=== PATIENT | male | born 1945 | race Caucasian/White ===

== ENCOUNTER 2016-12-11 14:23 | Inpatient (IN) | payer MEDICARE, OTHER ==
[~2016-12-11] VITALS: Ht 177.8 cm; Wt 92.4 kg
[2016-12-14] MEDS ORDERED: TRAM50TA PO (11:13)
[2016-12-14] MEDS ORDERED: BOSW5TAB PO (11:13)
[2016-12-14] MEDS ORDERED: TAMS0.4C4 PO (11:13)
[2016-12-14] MEDS ORDERED: DICL75TA PO (11:13)
[2016-12-14] MEDS ORDERED: POTA550T2 PO (11:13)
[2016-12-14] MEDS ORDERED: VENTAER INH (11:14)
--- NOTE | 2016-12-17 17:26 | MH ---
cc: LANCE DOBBINS MD, NORMAN B. M.D. DATE OF ADMISSION: 12/23/2016 ADMITTING DIAGNOSIS: 1. Severe osteoarthritis of the right hip. 2. Pain right hip. 3. gait disturbance. HISTORY OF PRESENT ILLNESS: The patient is a 71-year-old white male who has experienced at least a two year history of pain of his hips bilaterally, unrelated to injury or unusual activity. He had undergone initial evaluation with his primary care physician, Dr. Lance Dobbins, who diagnosed the patient has having an arthritic condition for which he was prescribed Voltaren. 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 He returned to his primary care physician and at that time x-ray studies were completed and the patient was prescribed Tramadol for pain management. He was subsequently seen by the undersigned physician in November of this year and at that time the patient reported ongoing difficulty as related to all ambulatory activities as well as his symptoms interfering with his ability to sleep comfortably through the night. His x-ray studies revealed significant degenerative changes which radiographically were somewhat more pronounced on the left side but clinically the patient was more symptomatic on the right side. He also was noted to have degenerative changes throughout his lumbar region. Findings and treatment options were reviewed with the patient. At that time, the pros and cons of continuing with conservative management versus operative intervention that would involve a total hip arthroplasty were outlined in detail. Emphasis was made regarding the fact that the decision to proceed with surgery would be left entirely to the patient's discretion. The patient indicated that he felt he had exhausted all modes of conservative management and did not feel that continuing in this direction would prove to be of any long-term benefit. He expressed his desire to proceed with operative intervention as previously discussed, and in compliance with his wishes he is currently being admitted in order that right total hip arthroplasty be completed. PAST MEDICAL HISTORY: His past medical history, hospitalizations and surgeries have included: 1. Sinus surgery. 2. Correction of a deviated nasal septum. 3. Colonoscopy. 4. Laser surgery for hemorrhoids. 5. Cystoscopy. 6. Medical management for pharyngitis. The patient's medical illnesses are basically related to his arthritic condition. MEDICATIONS: His current medications: 1. Diclofenac 75 milligrams twice daily. 2. Tramadol 50 milligrams one to two times daily. 3. Tamsulosin 0.4 milligrams daily. 4. Potassium gluconate 550 milligrams daily. 5. Osteo Biflex twice a day. ALLERGIES: THE PATIENT DENIES ANY KNOWN ALLERGIES. HE IS ALLERGIC TO PET DANDER WHICH HAS CAUSED SINUS CONGESTION. REVIEW OF SYSTEMS: He does wear glasses. Denies headache, seizure or syncope. No current sinus congestion. No epistaxis. Auditory acuity is diminished but not requiring hearing aids. No tinnitus. No bleeding gums or dysphagia. Denies cough, shortness of breath, upper respiratory infection, pneumonia or tuberculosis. No angina or heart disease. His appetite is good. Bowel movements are regular. No hepatitis, gallbladder disease or ulcers. There is a positive history of hemorrhoids. No urinary tract infection. No kidney stones. No prostate disease. No fractures. No psychiatric illness. His remaining review of systems is unremarkable and noncontributory. FAMILY HISTORY: The patient has been 41 years. His is 70 years of age and described as being in good health. Three sons are indicated to be in good health. Family history is otherwise positive for heart disease, emphysema and pancreatic cancer. 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 He completed a high school education. He denies active use of tobacco. He has ethanol consumption socially in the form of a couple beers or glasses of wine daily. PHYSICAL EXAMINATION: HEIGHT: 5 feet 10 inches. WEIGHT: 186 pounds. GENERAL: An alert, oriented and responsive 71-year-old white male who sits quietly upon examination table with no obvious distress. HEAD, EYES, EARS, NOSE, THROAT: Pupils are equally round and reactive to light. Extraocular movements full. Sclerae are clear. External nares clear. External auditory canals clear. Dental intact. Mucous membranes pink and moist. Pharynx clear. NECK: The neck is supple. Active range of motion with no appreciable pain. Carotid pulse bilaterally. Trachea midline. Thyroid without enlargement. LUNGS: Clear to auscultation and percussion. BACK: No CVA tenderness. No discomfort throughout the dorsal or lumbar spine. HEART: Regular rhythm. No murmur or gallop. ABDOMEN: Abdomen is soft and nontender. Bowel sounds present. RECTAL: Per primary care physician. EXTREMITIES: Right hip - there is no localizing tenderness along the lateral aspect of the right hip. There is restricted mobility of the hip joint in all ranges assessed being most pronounced with internal rotation and pain at the extremes of mobility. No sensation of crepitation or instability. Straight-leg raising is negative at 80 degrees. Chente sign is positive. Distal sensory is grossly intact. Pronounced antalgic gait. NEUROLOGIC: Cranial nerves II-XII grossly intact. IMPRESSION: 1. Severe osteoarthritis of the right hip. 2. Pain right hip. 3. Gait disturbance. PLAN: Right total hip arthroplasty. The nature of the planned surgical procedure, the potential complications and risks associated, the expectations of surgery and the consent form were thoroughly reviewed with the patient prior to admission to the hospital. Kunal has indicated his full understanding regarding all of the above, and has given consent to proceed with treatment as outlined. Medical evaluation and clearance for surgery will be completed by his primary care physician Dr. Lance Dobbins. MD ANDRES Jimenes/JCC /4:56 PM /5:14 PM
[2016-12-23] MEDS ORDERED: ceFAZolin 2 GM PREMIX 50 ML IV SCH (05:30)
[2016-12-23] MEDS ORDERED: TRANEXAMIC ACID 1 GM POST-OP IV SCH ×2 (05:30)
[2016-12-23] MEDS ORDERED: POVIDONE IODINE 7.5% SCRUB 118 ML BOTTLE TOPICAL SCH (05:30)
[2016-12-23] MEDS ORDERED: TRANEXAMIC ACID 1 GM PRIOR TO PROCEDURE IV SCH ×2 (05:30)
[2016-12-23] MEDS ORDERED: LACTATED RINGER'S 1000 ML IV PRN (05:45)
[2016-12-23] MEDS ORDERED: POVIDONE IODINE 5% (ANTISEPSIS KIT) 4 APPLICATIONS EACH NARE PRN (05:45)
[2016-12-23] MEDS ORDERED: SODIUM CHLORID 0.9% 500 ML IV PRN (05:45)
[2016-12-23] MEDS ORDERED: CHLORHEXIDINE GLUCONATE 2 % 1 PACK (2 CLOTHS) TOPICAL PRN (05:45)
[2016-12-23] MEDS ORDERED: METOPROLOL TARTRATE 25 MG TAB PO PRN (05:45)
[2016-12-23] MEDS ORDERED: INSULIN HUMAN REGULAR 1,000 UNITS/10 ML VIAL SQ PRN (05:45)
[2016-12-23 05:53] VITALS: BP 144/75; PULSE 69; RESP 18; TEMP 99.3; O2SAT 96
[2016-12-23] MEDS ORDERED: ceFAZolin INJ 1,000 MG VIAL ONE ×2 (06:24→06:33)
[2016-12-23] MEDS ORDERED: fentaNYL CITRATE 250 MCG/5 ML AMP ONE (08:19)
[2016-12-23] MEDS ORDERED: ACETAMINOPHEN 1000 MG/100 ML VIAL IV ONE (08:19)
[2016-12-23] MEDS ORDERED: MIDAZOLAM HCL 2 MG/2 ML VIAL ONE (08:19)
[2016-12-23] MEDS ORDERED: Post-op Orders (for Pharmacy) MISC XX ONE (09:10)
[2016-12-23] MEDS ORDERED: diphenhydrAMINE HCL 25 MG CAP PO PRN (09:15)
[2016-12-23] MEDS ORDERED: TRANEXAMIC ACID INJ 1,000 MG in SODIUM CHLORIDE 0.9% INJ 100 ML IV SCH (09:15)
[2016-12-23] MEDS ORDERED: ZOLPIDEM TARTRATE 5 MG TAB PO PRN (09:15)
[2016-12-23] MEDS ORDERED: NALOXONE HCL 0.4 MG/ML AMP IV PRN (09:15)
[2016-12-23] MEDS ORDERED: MISCELLANEOUS PHARMACY INFORMATION XX ONE (09:15)
[2016-12-23] MEDS ORDERED: SODIUM CHLORIDE 0.9% FLUSH 10 ML FLUSH IV FLUSH PRN (09:15)
[2016-12-23] MEDS ORDERED: DOCUSATE SODIUM 100 MG CAP PO PRN (09:15)
[2016-12-23] MEDS ORDERED: ACETAMINOPHEN 325 MG TAB PO PRN (09:15)
[2016-12-23] MEDS ORDERED: ACETAMINOPHEN/HYDROcodone 325 MG/5 MG TAB PO PRN ×2 (09:15)
[2016-12-23] MEDS ORDERED: MORPHINE SULFATE 30 MG/30 ML PCA IV SCH (09:15)
[2016-12-23] MEDS ORDERED: *MEPERIDINE 25 MG INJ VIAL PERIprocedural Use ONLY ONE (09:23)
[2016-12-23] MEDS ORDERED: *morphine SULFATE 8 MG/ML PERIprocedure ONLY ONE ×2 (09:35→09:55)
[2016-12-23] MEDS ORDERED: DO NOT ADM ANY ANTICOAGULANT DRUGS PRN (10:30)
--- NOTE | 2016-12-23 10:42 | RADRPT ---
EXAM DATE/TIME: 12/23/2016 09:38 [facility] COMPARISON: No previous studies available for comparison. INDICATIONS : Post op right hip surgery. MEDICAL HISTORY : None. SURGICAL HISTORY : None. ENCOUNTER: Initial ACUITY: 1 day PAIN SCORE: 0/10 LOCATION: Right Hip. FINDINGS: The patient is status post a total hip arthroplasty with a bipolar prosthesis. Prosthesis is well-sea yousuf. Alignment is anatomic. A fracture is not appreciated. CONCLUSION: Anatomic alignment. Harley Rutherford MD FACR Board Certified Radiologist. This report was verified electronically.
[2016-12-23] MEDS: DEXT 5%-NACL 0.45% 1000 ML INJ 1,000 ML IV SCH ×2 (10:52→17:03)
--- NOTE | 2016-12-23 11:04 | MP ---
cc: KEHINDE CONTE DATE OF OPERATION 23 Dec 2016 PREOPERATIVE DIAGNOSIS Severe osteoarthritis of the right hip, pain right hip, and gait disturbance. POSTOPERATIVE DIAGNOSIS Severe osteoarthritis of the right hip, pain right hip, and gait disturbance. PROCEDURE Right total hip arthroplasty. SURGEON MD Ritu ANESTHESIA General endotracheal. INDICATIONS A 71-year-old white male with a two-year history of bilateral hip pain unrelated to injury or unusual activity. He had undergone initial evaluation with his primary care physician, Dr. Immanuel Sofia, who had diagnosed the patient as having an arthritic condition for which he was prescribed Voltaren. 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 He returned to his primary care physician at that time, x-ray studies were completed and the patient was prescribed tramadol for pain management. He was later seen by the undersigned physician in November of this year and at that time he reported ongoing difficulty as related to all ambulatory activities as well as symptoms interfering with his ability to sleep comfortably through the night. His x-ray studies revealed significant degenerative changes somewhat more pronounced about his left hip but clinically the patient being more symptomatic on the right side. He was also noted to have degenerative changes throughout his lumbar spine. Findings and treatment options were reviewed with the patient at that time. The pros and cons of continuing with conservative management versus operative intervention that would involve total hip arthroplasty were outlined in detail. Emphasis was made regarding the fact that the decision to proceed with surgery would be left entirely to the patient's discretion. The patient indicated that he felt he had exhausted all modes of conservative management, did not feel that continuing in this direction would prove to be of any long-term benefit. He expressed his desire to proceed with surgery as discussed and in compliance with his wishes he was scheduled for admission at this time in order that total hip arthroplasty be completed. FORMAT Following induction of satisfactory general anesthesia by endotracheal intubation as completed per the Department of Anesthesia, the patient was positioned upon the operating table in a left lateral decubitus fashion. The right hip and lower extremity proper were isolated with a U drape, thereafter being prepped with Betadine solution and draped into a sterile field in the routine manner. Prior to initiation of the actual procedure, the standard time-out protocol was completed. All parameters were appropriately addressed and confirmed by operating room personnel. A standard posterolateral approach to the hip was initiated through a sharp skin incision and developed through underlying subcutaneous tissue with hemostasis maintained by electrocautery. By deepening dissection the fascia overlying the gluteus musculature was exposed and thereafter sharply incised to the limits of the incision. The underlying gluteus fibers were divided with the Bovie on cutting current. Progressive dissection facilitated exposure of the short external rotator structures. The pyriformis tendon was utilized in anatomical landmark and division of these structures was completed in a superior to inferior orientation reflected medially exposing the posterior capsule. The sciatic nerve was protected. An L-shaped capsulotomy was accomplished through which a posterior dislocation of the femoral head was completed. Examination revealed severe degenerative changes involving the entire articular surface. In addition there were multiple cartilaginous fragments throughout the acetabulum which were removed as they were encountered. The femoral template was positioned for alignment orientation. The neck was scored and thereafter divided with power saw, the amputated segment being passed to the back table as surgical specimen. Attention was initially directed to the proximal femur. Cancellus bone was harvested. The tapered reamer was inserted for alignment orientation. Sequential rasping and broaching was thereafter accomplished from 7 through 12 mm with the calcar rosalba being utilized at the 11-mm stage. The 12-mm stem was determined to be a favorable fit. The trial component being removed, attention was redirected to the acetabulum. The labrum and reactive soft tissue were sharply excised. Progressive reaming was accomplished from 50 through 57 mm. The 58 trial shell was positioned and determined to be satisfactory. With all trial components being removed, the wound was copiously irrigated with pulsating antibiotic solution, hemostasis maintained by electrocautery. Harvested cancellous bone was digitally impacted into the acetabulum and thereafter a 58-mm continuum acetabular shell was firmly seated into the acetabulum in approximately 45 degrees inclination to the horizontal and slight anteversion. A single 25-mm, 6.5 cancellous screw was inserted superiorly to augment fixation. The permanent high wall acetabular liner was affixed to the acetabular shell. The 12-mm trial femoral broach was repositioned and a trial reduction followed utilizing a 36-mm modular head with -6 mm neck length adapter. The hip readily reduced and was carried through a passive range of motion, stability being demonstrated at 90 degrees flexion and 45 degrees internal rotation. An open dislocation was completed, all trial components being removed from the femur. The canal was thoroughly irrigated and dried and thereafter the permanent 12-mm Echo Bi-[employer] standard femoral stem was firmly seated to which a 36-mm ceramic head with -6 mm neck length adapter was attached. The hip then was reduced and carried through a passive range of motion, stability being demonstrated as previously described. Final irrigation was accomplished, hemostasis maintained. The posterior capsule was repaired with 0 Vicryl suture. Pyriformis tendon and short external rotator structures were reapproximated in a similar manner. Hemovac drain tubes were inserted through superior stab wounds. The fascia of the gluteus musculature was reapproximated with a running 0 Vicryl suture. The remaining portion of the wound was closed in layers in the routine manner, skin margins being reapproximated with a running subcuticular 3-0 Vicryl suture over which Steri-Strips were applied. Xeroform gauze and a bulky dry sterile dressing were placed. The patient was repositioned into a supine orientation where an abduction splint was attached. Anesthesia was discontinued and he was thereafter transferred to a hospital bed and returned to the recovery room in satisfactory condition having tolerated his operative procedure well. Estimated blood loss was approximately 400 cc as determined per Anesthesia. All implants were of the Biomet. MD ANDRES Jimenes/SSB /9:08 AM /10:47 AM
[2016-12-23] MEDS ORDERED: ePHEDrine/NS 25 MG/5 ML SYR IV ONE (12:29)
[2016-12-23] MEDS ORDERED: PROPOFOL 200 MG/20 ML AMP IV ONE (12:29)
[2016-12-23] MEDS ORDERED: NEOSTIGMINE 3 MG/3 ML SYR IV ONE (12:29)
[2016-12-23] MEDS ORDERED: ONDANSETRON HCL 4 MG/2 ML VIAL IV PUSH ONE (12:29)
[2016-12-23 12:30] VITALS: BP 115/64; PULSE 74; RESP 18; TEMP 96.9; O2SAT 95
[2016-12-23] MEDS ORDERED: LACTATED RINGER'S 1000 ML INJ 1,000 ML IV ONE (12:30)
[2016-12-23] MEDS: PCA - TOTAL MG MORPHINE DELIVERED PER SHIFT SCH ×2 (14:00→22:00)
[2016-12-23] MEDS: TAMSULOSIN HCL 0.4 MG CAP PO SCH (15:34)
[2016-12-23 16:00] VITALS: BP 108/71; PULSE 66; RESP 18; TEMP 96; O2SAT 96
--- NOTE | 2016-12-23 16:22 | PD.CONS ---
HPI Service [facility] Consult Requested By Dr. Chaney from orthopedic service Reason for Consult Medical management Primary Care Physician Lance Sofia DO Diagnoses: History of Present Illness Patient is appropriate very pleasant 71-year-old male with known history of benign prostatic hypertrophy who has been having chronic right hip pain for the past 2 years now worsening over the past few months with increasing pain and increasing difficulty ambulating which prompted consult and scheduled for admission and underwent surgery today. Dr. chaney. Procedure done right total hip arthroplasty. Patient seen postop has already voided. Very motivated with physical therapy denies any pain currently. [facility] Review of Systems Constitutional: DENIES: Diaphoretic episodes, Fatigue, Fever, Weight gain, Weight loss, Chills, Dizziness, Change in appetite, Night Sweats Endocrine: DENIES: Heat/cold intolerance, Polydipsia, Polyuria, Polyphagia Eyes: DENIES: Blurred vision, Diplopia, Eye inflammation, Eye pain, Vision loss , Photosensitivity, Double Vision Ears, nose, mouth, throat: DENIES: Tinnitus, Hearing loss, Vertigo, Nasal discharge, Oral lesions, Throat pain, Hoarseness, Ear Pain, Running Nose, Epistaxis, Sinus Pain, Toothache, Odynophagia Respiratory: DENIES: Apneas, Cough, Snoring, Wheezing, Hemoptysis, Sputum production, Shortness of breath Cardiovascular: DENIES: Chest pain, Palpitations, Syncope, Dyspnea on Exertion , PND, Lower Extremity Edema, Orthopnea, Claudication Gastrointestinal: DENIES: Abdominal pain, Black stools, Bloody stools, Constipation, Diarrhea, Nausea, Vomiting, Difficulty Swallowing, Anorexia Genitourinary: DENIES: Sexual dysfunction, Urinary frequency, Urinary incontinence, Urgency, Hematuria, Dysuria, Nocturia, Penile Discharge, Testicular Pain, Testicular Swelling Musculoskeletal: COMPLAINS OF: Joint pain Integumentary: DENIES: Abnormal pigmentation, Nail changes, Pruritus, Rash Hematologic/lymphatic: DENIES: Bruising, Lymphadenopathy Immunologic/allergic: DENIES: Eczema, Urticaria Neurologic: COMPLAINS OF: Abnormal gait Psychiatric: DENIES: Anxiety, Confusion, Mood changes, Depression, Hallucinations, Agitation, Suicidal Ideation, Homicidal Ideation, Delusions Past Family Social History Allergies: Coded Allergies: Cat Dander (Verified Allergy, Severe, Skin Discoloration, 12/14/16) Past Medical History History of benign prostatic hypertrophy Seasonal allergy with occasional hyperreactive airway acute exacerbation Past Surgical History Sinus surgeries Reported Medications Flomax 0.4 mg at bedtime Albuterol metered-dose inhaler when necessary rarely used per patient Diclofenac sodium when necessary Tramadol when necessary Family History Noncontributory Social History Never smoked Very occasional alcohol use Physical Exam Vital Signs Vital Signs Date Time Temp Pulse Resp B/P Pulse Ox O2 Delivery O2 Flow Rate FiO2 12/23/16 12:30 96.9 74 18 115/64 95 12/23/16 10:33 15 12/23/16 10:30 98.7 78 16 122/60 100 Nasal Cannula 3 12/23/16 10:28 15 12/23/16 10:15 80 15 120/59 99 Nasal Cannula 3 12/23/16 10:00 85 15 137/67 98 Nasal Cannula 3 12/23/16 10:00 15 12/23/16 10:00 15 12/23/16 09:45 82 15 126/62 100 Nasal Cannula 4 12/23/16 09:40 15 12/23/16 09:30 84 15 133/66 98 Nasal Cannula 4 12/23/16 09:15 98.4 84 15 131/62 97 Nasal Cannula 4 12/23/16 05:53 99.3 69 18 144/75 96 Physical Exam GENERAL: This is a well-nourished, well-developed patient, in no apparent distress. SKIN: No rashes, Cool and dry. HEAD: Atraumatic. Normocephalic. EYES: Pupils equal round and reactive. Extraocular motions intact. No scleral icterus ENT: Nose without bleeding,Throat without erythema, Airway patent. NECK: Trachea midline. No JVD or lymphadenopathy. Supple, nontender, no meningeal signs. CARDIOVASCULAR: Regular rate and rhythm without murmurs, gallops, or rubs. RESPIRATORY: Clear to auscultation. Breath sounds equal bilaterally. No wheezes , rales, or rhonchi. GASTROINTESTINAL: Abdomen soft, non-tender, nondistended. No hepato-splenomegaly , or palpable masses. No guarding. MUSCULOSKELETAL: Extremities without clubbing, cyanosis, or edema. No joint tenderness, effusion, or edema noted. No calf tenderness. Negative Homans sign bilaterally. Postop dressing in place NEUROLOGICAL: Awake and alert. Cranial nerves II through XII intact. Motor and sensory grossly within normal limits. Five out of 5 muscle strength in all muscle groups. Normal speech. Laboratory Laboratory Tests Test 12/23/16 05:50 Blood Type O POSITIVE Antibody Screen NEGATIVE Blood Bank Comment Imaging Last Impressions Hip X-Ray 12/23/16 0915 Signed Impressions: Service Date/Time: Friday, December 23, 2016 09:38 - CONCLUSION: Anatomic alignment. Harley Rutherford MD Assessment and Plan Assessment and Plan 71-year-old male admitted for chronic recurrent chronic right hip pain Status post right total hip arthroplasty 12/23 Orthopedic service is following PT consult. prn pain meds History of BPH. Continue Flomax 0.4 mg at bedtime Xarelto for DVT prophylaxis Case management discharge planning patient prefers to go home with home PT or outpatient physical therapy Thank you for this consult we'll follow patient in-house with you Discussed Condition With patient Reynold George MD December 23, 2016 16:22
[2016-12-23 19:32] VITALS: BP 120/58; PULSE 75; RESP 19; TEMP 98.5; O2SAT 95
[2016-12-23] MEDS: SODIUM CHLORIDE 0.9% FLUSH 10 ML FLUSH IV FLUSH SCH (21:00)
[2016-12-23 21:17] VITALS: O2SAT 96
[2016-12-24 00:16] VITALS: BP 121/58; PULSE 73; RESP 18; TEMP 97.8; O2SAT 96
[2016-12-24] MEDS: DEXT 5%-NACL 0.45% 1000 ML INJ 1,000 ML IV SCH ×4 (02:21→23:32)
[2016-12-24 04:09] VITALS: BP 129/60; PULSE 74; RESP 18; TEMP 98.8; O2SAT 95
[2016-12-24] MEDS: PCA - TOTAL MG MORPHINE DELIVERED PER SHIFT SCH (05:58)
[2016-12-24] MEDS ORDERED: ASPI325T PO (05:59)
[2016-12-24] MEDS ORDERED: HYDR-3516 PO (05:59)
--- NOTE | 2016-12-24 06:01 | HHI.FF ---
Face to Face Verification Diagnosis: (1) Degenerative joint disease (DJD) of hip Physical Therapy Gait training Hip: Total hip, Protocol: Right, Abduction pillow while in bed Right LE Weight Bearing: WB as tolerated Right LE Range of Motion: Active ROM Nursing Dressing Changes: Daily dressing change I have seen patient Kunal Cardoso on 12/24/16. My clinical findings support the need for the requested home health care services because: Limited ability to care for self High risk of falls I certify that my clinical findings support that this patient is homebound because: Post-op weakness Unsteady gait/balance Unsafe to leave home unassisted Zeke Chaney MD December 24, 2016 06:01
[2016-12-24] MEDS ORDERED: WALKER WHEELS/F1 MIS (06:03)
[2016-12-24] MEDS ORDERED: MISC-163 (06:03)
[2016-12-24 07:34] VITALS: BP 133/60; PULSE 90; RESP 19; TEMP 98.3; O2SAT 98
[2016-12-24 07:40] LABS: HEMATOCRIT 38.2 % (39.0-51.0); REVIEW FLAG FINAL
[2016-12-24] MEDS: TAMSULOSIN HCL 0.4 MG CAP PO SCH (08:16)
[2016-12-24] MEDS: SODIUM CHLORIDE 0.9% FLUSH 10 ML FLUSH IV FLUSH SCH ×2 (08:16→20:00)
[2016-12-24] MEDS: RIVAROXABAN 10 MG TAB PO SCH (08:16)
--- NOTE | 2016-12-24 09:51 | HHI.PR ---
Subjective Remarks minimal pain post op site nauseated, vomited breakfast this am, abdominal cramping feels constipated- + flatus -last evening- urinary retention- metzger placed 1200 cc out Objective Vitals Vital Signs Date Time Temp Pulse Resp B/P Pulse Ox O2 Delivery O2 Flow Rate FiO2 12/24/16 07:34 98.3 90 19 133/60 98 12/24/16 05:58 18 12/24/16 04:09 98.8 74 18 129/60 95 12/24/16 00:16 97.8 73 18 121/58 96 12/23/16 22:00 18 12/23/16 21:17 96 21 12/23/16 19:32 98.5 75 19 120/58 95 12/23/16 16:00 96.0 66 18 108/71 96 12/23/16 12:30 96.9 74 18 115/64 95 12/23/16 10:33 15 12/23/16 10:30 98.7 78 16 122/60 100 Nasal Cannula 3 12/23/16 10:28 15 12/23/16 10:15 80 15 120/59 99 Nasal Cannula 3 12/23/16 10:00 85 15 137/67 98 Nasal Cannula 3 12/23/16 10:00 15 12/23/16 10:00 15 I/O 12/23/16 12/23/16 12/23/16 12/24/16 12/24/16 12/24/16 07:00 15:00 23:00 07:00 15:00 23:00 Intake Total 1700 ml 480 ml 480 ml Output Total 440 ml 430 ml 1950 ml Balance 1260 ml 50 ml -1470 ml Intake Oral 480 ml 480 ml IV Total 100 ml Other 1600 ml Output Urine Total 300 ml 1950 ml Drainage Total 40 ml 130 ml 0 ml Estimated Blood Loss 400 ml # Bowel Movements 0 0 Result Diagram: 12/24/16717 Imaging Last Impressions Hip X-Ray 12/23/16914 Signed Impressions: Service Date/Time: Friday, December 23, 2016 09:38 - CONCLUSION: Anatomic alignment. Harley Rutherford MD Objective Remarks awake and alert anicteric lungs clear regular rhythm abdomen- slightly distended soft, + hyperactive bowel sounds extremities no calf swelling or edema, right hip ENOC bulb in place metzger in place- light blood tinged urine Procedures 12/23- right total hip arthroplasty Urinary Catheter: Yes Assessment to: Continue Metzger insert reason: Obstruction/Retention Date of Insertion: December 23, 2016 A/P Assessment and Plan 71-year-old male admitted for chronic recurrent chronic right hip pain Status post right total hip arthroplasty 12/23 Orthopedic service is following PT consult. 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 MIralax 17 gm now check labs- History of BPH. Post op acute urinary retention- metzger placed 12/23 early am restarted Flomax 0.4 mg daily yesterday keep metzger voiding trial in next few days check UA PT dialy Xarelto for DVT prophylaxis checked on patient with present this time- per has same reaction with [place] in the past. recevied percocet - some nausea can only tolerate- Tramadol DC percocet- change to po Ultracet prn for pain Reynold George MD December 24, 2016 09:51 Discussed Condition With patient Reynold George MD December 24, 2016 09:51 Reynold George MD December 24, 2016 09:51
[2016-12-24] MEDS: ONDANSETRON HCL 4 MG/2 ML VIAL IVP PRN (09:52)
[2016-12-24] MEDS ORDERED: POLYETHYLENE GLYCOL 17 GM PKG PO ONE (10:00)
[2016-12-24] MEDS ORDERED: ONDANSETRON HCL 4 MG/2 ML VIAL IV PUSH PRN (10:00)
[2016-12-24 11:32] VITALS: BP 114/60; PULSE 75; RESP 19; TEMP 97.6; O2SAT 98
[2016-12-24 12:38] LABS: ALKALINE PHOSPHATASE 95 U/L (45-117); ALT (GPT) 28 U/L (12-78); ANION GAP 9 MEQ/L (5-15); AST (GOT) 26 U/L (15-37); BLOOD UREA NITROGEN 9 MG/DL (7-18); CHLORIDE 97 MEQ/L (98-107); GLOMERULAR FILTRATION RATE 87 ML/MIN (>89); POTASSIUM 3.6 MEQ/L (3.5-5.1); SODIUM (NA) 133 MEQ/L (136-145); TOTAL BILIRUBIN ADULT 0.7 MG/DL (0.2-1.0)
[2016-12-24 15:50] VITALS: BP 133/58; PULSE 77; RESP 19; TEMP 99.7; O2SAT 97
[2016-12-24 17:25] LABS: URINE COLOR DARK-RED (YELLW/STRAW)
[2016-12-24 17:27] LABS: BLOOD, URINE LARGE (NEG); GLUCOSE,URINE NEG (NEG); KETONE, URINE 10 mg/dL (NEG)
[2016-12-24 17:28] LABS: NITRITE,URINE NEG (NEG)
[2016-12-24 17:31] LABS: BACTERIA, URINE FEW /hpf; COMMENT (UR) CATH-CULTURE IND; CULTURE IF INDICATED CATH CULTURE IND; SQUAMOUS EPITHELIAL CELL URINE 2 /hpf (0-5)
[2016-12-24] MEDS: LEVOFLOXACIN 500 MG TAB PO SCH (18:12)
[2016-12-24 20:00] VITALS: BP 135/65; PULSE 93; RESP 16; TEMP 98.1; O2SAT 97
[2016-12-24] MEDS: DOCUSATE SODIUM 100 MG CAP PO SCH (20:00)
[2016-12-24] MEDS ORDERED: DOCUSATE SODIUM 100 MG CAP PO SCH (21:00)
[2016-12-25] VITALS: BP 119/62; PULSE 89; RESP 17; TEMP 99.6; O2SAT 96
[2016-12-25] MEDS: traMADol/ACETAMINOPHEN 37.5/325 1 TAB PO PRN ×2 (00:32→05:39)
[2016-12-25 07:33] VITALS: BP 117/66; PULSE 85; RESP 17; TEMP 98.8; O2SAT 93
[2016-12-25] MEDS: TAMSULOSIN HCL 0.4 MG CAP PO SCH (08:07)
[2016-12-25] MEDS: LEVOFLOXACIN 500 MG TAB PO SCH (08:07)
[2016-12-25] MEDS: RIVAROXABAN 10 MG TAB PO SCH (08:07)
[2016-12-25] MEDS: DOCUSATE SODIUM 100 MG CAP PO SCH ×2 (08:07→21:31)
[2016-12-25] MEDS: SODIUM CHLORIDE 0.9% FLUSH 10 ML FLUSH IV FLUSH SCH ×2 (08:14→21:31)
[2016-12-25] MEDS: DEXT 5%-NACL 0.45% 1000 ML INJ 1,000 ML IV SCH (10:00)
[2016-12-25] MEDS: ONDANSETRON HCL 4 MG/2 ML VIAL IVP PRN (10:14)
[2016-12-25 11:33] VITALS: BP 112/57; PULSE 82; RESP 17; TEMP 98.8; O2SAT 94
[2016-12-25] MEDS ORDERED: PANTOPRAZOLE SODIUM 40 MG VIAL IV PUSH SCH (12:00)
--- NOTE | 2016-12-25 12:00 | HHI.PR ---
Subjective Remarks patient had 2 good BM today fesls slightly nauseated, reflux sensation no pain complains Objective Vitals Vital Signs Date Time Temp Pulse Resp B/P Pulse Ox O2 Delivery O2 Flow Rate FiO2 12/25/16 11:33 98.8 82 17 112/57 94 12/25/16 07:33 98.8 85 17 117/66 93 12/25/16 00:00 99.6 89 17 119/62 96 12/24/16 20:00 98.1 93 16 135/65 97 12/24/16 15:50 99.7 77 19 133/58 97 I/O 12/24/16 12/24/16 12/24/16 12/25/16 12/25/16 12/25/16 07:00 15:00 23:00 07:00 15:00 23:00 Intake Total 480 ml 240 ml 600 ml 360 ml Output Total 1950 ml 300 ml 2335 ml 5 ml Balance -1470 ml -60 ml -1735 ml 355 ml Intake Oral 480 ml 240 ml 600 ml 360 ml Output Urine Total 1950 ml 300 ml 2325 ml Drainage Total 0 ml 10 ml 5 ml # Voids 0 # Bowel Movements 0 0 1 Result Diagram: 12/24/16 0718 12/24/16 1156 Imaging Last Impressions Hip X-Ray 12/23/16 0915 Signed Impressions: Service Date/Time: Friday, December 23, 2016 09:38 - CONCLUSION: Anatomic alignment. Harley Rutherford MD Objective Remarks awake and alert anicteric lungs clear regular rhythm abdomen- slightly distended soft, + hyperactive bowel sounds extremities no calf swelling or edema, right hip ENOC bulb in place metzger in place- clear urine Procedures 12/23- right total hip arthroplasty Date of Insertion: December 23, 2016 A/P Assessment and Plan 71-year-old male admitted for chronic recurrent chronic right hip pain Status post right total hip arthroplasty 12/23 Orthopedic service is following PT consult. prn pain meds Ultrace for prn pain- unable to tolerated narcotics Nausea- improved. Zofran IV prn Constipation-- resolved. Had 2 good BMs treat with Miralax- per patient history of constipation d/w staff nurse to closely monitor- get abdominal film Zofran IV prn. History of BPH. Post op acute urinary retention- metzger placed 12/23 early am restarted Flomax 0.4 mg daily 12/23 keep metzger voiding trial in next few days UTI- started on Levaquin. Ff final culture and sensitivity PT daily Xarelto for DVT prophylaxis Reynold George MD December 25, 2016 12:00 can only tolerate- Tramadol DC percocet- change to po Ultracet prn for pain Reynold George MD December 25, 2016 12:00
[2016-12-25] MEDS: ALUMINUM/MAGNESIUM/SIMETH 30 ML CUP PO SCH ×3 (15:19→21:31)
[2016-12-25 15:30] VITALS: BP 117/57; PULSE 77; RESP 17; TEMP 98.6; O2SAT 97
[2016-12-25 20:00] VITALS: BP 134/63; PULSE 81; RESP 18; TEMP 98.2; O2SAT 95
[2016-12-26] VITALS: BP 129/60; PULSE 76; RESP 17; TEMP 99.7; O2SAT 97
[2016-12-26] MEDS: traMADol/ACETAMINOPHEN 37.5/325 1 TAB PO PRN (05:17)
[2016-12-26 08:00] VITALS: BP 120/64; PULSE 84; RESP 17; TEMP 99.2; O2SAT 94
[2016-12-26] MEDS: SODIUM CHLORIDE 0.9% FLUSH 10 ML FLUSH IV FLUSH SCH (09:00)
--- NOTE | 2016-12-26 09:11 | HHI.PR ---
Subjective Remarks had a good BM voided freely with no difficulty- after metzger removal up and ambulated well with OT- with walker Objective Vitals Vital Signs Date Time Temp Pulse Resp B/P Pulse Ox O2 Delivery O2 Flow Rate FiO2 12/26/16 00:00 99.7 76 17 129/60 97 12/25/16 20:00 98.2 81 18 134/63 95 12/25/16 19:05 Room Air 12/25/16 15:30 98.6 77 17 117/57 97 12/25/16 11:33 98.8 82 17 112/57 94 I/O 12/25/16 12/25/16 12/25/16 12/26/16 12/26/16 12/26/16 07:00 15:00 23:00 07:00 15:00 23:00 Intake Total 360 ml 500 ml 240 ml 240 ml Output Total 5 ml 400 ml 250 ml 460 ml Balance 355 ml 100 ml -10 ml -220 ml Intake Oral 360 ml 500 ml 240 ml 240 ml Output Urine Total 400 ml 250 ml 460 ml Drainage Total 5 ml # Bowel Movements 1 1 1 1 Result Diagram: 12/24/1618 12/24/16 1156 Imaging Last Impressions Hip X-Ray 12/23/1615 Signed Impressions: Service Date/Time: Friday, December 23, 2016 09:38 - CONCLUSION: Anatomic alignment. Harley Rutherford MD Objective Remarks awake and alert anicteric lungs clear regular rhythm abdomen- soft, good bowel sounds, no tenderness extremities no calf swelling or edema, Procedures 12/23- right total hip arthroplasty Date of Insertion: December 23, 2016 Date of Removal: December 25, 2016 A/P Assessment and Plan 71-year-old male admitted for chronic recurrent chronic right hip pain Status post right total hip arthroplasty 12/23 Orthopedic service is following PT consult. prn pain meds Ultrace for prn pain- unable to tolerated narcotics Constipation-- resolved. Had 2 good BMs treat with Miralax- per patient history of constipation History of BPH. Post op acute urinary retention- metzger placed 12/23 early am- resolved- metzger out 12/25- voided well continue on his Flomax 0.4 mg daily UTI- started on Levaquin.- with BPH history complete Levaquin course for 4 more days Recheck UA after treatment course- results to- Dr. Sofia ASA 325 mg po bid- for DVT prophylaxis per primary service. PPI for GI prophylaxis DC today with home health- ff up with PCP- [id number] UA in 10 days Reynold George MD December 26, 2016 09:11
[2016-12-26] MEDS ORDERED: PROT40TA PO (09:16)
[2016-12-26] MEDS ORDERED: TRAM-388 PO (09:18)
[2016-12-26] MEDS ORDERED: DOCU1CAP39 PO (09:27)
[2016-12-26] MEDS ORDERED: DOCUSATE SODIUM 100 MG CAP PO SCH (09:30)
[2016-12-26] MEDS: ALUMINUM/MAGNESIUM/SIMETH 30 ML CUP PO SCH (09:32)
[2016-12-26] MEDS ORDERED: LEVA500T PO (09:32)
[2016-12-26] MEDS: TAMSULOSIN HCL 0.4 MG CAP PO SCH (09:32)
[2016-12-26] MEDS: DOCUSATE SODIUM 100 MG CAP PO SCH (09:32)
[2016-12-26] MEDS: RIVAROXABAN 10 MG TAB PO SCH (09:33)
[2016-12-26] MEDS: LEVOFLOXACIN 500 MG TAB PO SCH (09:33)
[2016-12-26 12:00] VITALS: BP 111/60; PULSE 79; RESP 17; TEMP 98.8; O2SAT 95
--- NOTE | 2016-12-29 11:57 | MD ---
cc: MENA DOBBINS MD, NORMAN B. M.D. ADMISSION DATE: 12/23/2016 DISCHARGE DATE: 12/26/2016 ADMISSION DIAGNOSIS Severe osteoarthritis of the right hip pain right hip and gait disturbance. DISCHARGE DIAGNOSIS Severe osteoarthritis of the right hip pain right hip and gait disturbance. HISTORY 71-year-old white male with a 2-year history of bilateral hip pain unrelated to injury or unusual activity. He had undergone initial evaluation with his primary care physician Dr. Immanuel Dobbins who had diagnosed the patient as having arthritic condition for which he was prescribed Voltaren. 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 He returned to his primary care physician at that time x-ray studies were completed and the patient was prescribed tramadol for pain management. He was later seen by the undersigned physician in November of this year and at that time he reported ongoing difficulty as related to all ambulatory activities as well as symptoms interfering with his ability to sleep comfortably through the night. His x-ray studies revealed significant degenerative changes more pronounced on the left side then clinically, the patient being more symptomatic on the right side. He was also noted to have degenerative changes throughout his lumbar spine. Findings and treatment options were reviewed with the patient the pros and cons of continuing with conservative management versus operative intervention that would involve a total hip arthroplasty were outlined in detail. Emphasis was made regarding the fact that the decision to proceed with surgery would be left entirely to the patient's discretion. The patient indicated that he felt he had exhausted all modes of conservative treatment and was ready to proceed with operative intervention as had been discussed in compliance with his wishes he was scheduled for admission at this time in order that right total hip arthroplasty be completed. PHYSICAL EXAMINATION: His physical examination at that time admission revealed no localizing tenderness about the lateral aspect of the right hip. There was restricted mobility of the hip joint in all ranges assessed being most pronounced with internal rotation and pain at the extremes of motion. There was no sensation of crepitation or instability. Straight-leg raising was negative at 80 degrees. Chente sign positive. Distal sensory grossly intact. Pronounced antalgic gait. HOSPITAL COURSE Prior to admission to the hospital the patient had undergone medical evaluation and clearance for surgery as completed by his primary care physician Dr. Dobbins, he was taken to the operating room on 23 Dec 2016 and on that date underwent a right total hip arthroplasty completed an uncomplicated manner. The patient was noted to have tolerated his operative procedure well and his postoperative course stable thereafter. Hemoglobin/hematocrit assessment postoperatively was 12.4 and 38.2 respectively. The patient was progressively mobilized under the guidance of physical therapy being permitted weightbearing to tolerance about the left lower extremity. Follow up examination of his surgical wound noted to be intact healing favorably no evidence of infection. Medical followup per the hospitalist service. DVT prophylaxis initiated. senior web services developer consulted to assist discharge planning. The patient had indicated his desire to be discharged home and continue his rehabilitation on outpatient basis. Plans were finalized in this regard and pending medical clearance he was scheduled for transfer on the third postoperative day, at which time he was noted making steady progress with regards to his rehab program. He was scheduled be seen in office followup in approximately 4 weeks. His condition at the time of discharge was stable. Prognosis favorable. MEDICATIONS discharge medications included 1. Hydrocodone 12/324, #60. 2. Aspirin 325 mg 1 tablet twice daily 4 weeks #60. MD ANDRES Jimenes/ /6:39 AM /11:50 AM
== END 2016-12-26 15:02 | disposition home health service (06) | DRG 470 ==
LOC: HSDI 12-23 05:08 → EDUNIT# 12-23 10:00 → N06A 12-23 12:32
PROVIDERS: ADMIT Orthopaedic Surgery; ATTEND Orthopaedic Surgery
PROC: 0SR90JA Replacement of Right Hip Joint with Synthetic Substitute, Uncemented, Open Approach (ICD-10-PCS; principal; 2016-12-23 06:42)
DX: M16.11 Unilateral primary osteoarthritis, right hip (principal); N39.0 Urinary tract infection, site not specified; G89.29 Other chronic pain; N40.0 Benign prostatic hyperplasia without lower urinary tract symptoms; R26.9 Unspecified abnormalities of gait and mobility; K59.00 Constipation, unspecified
CPT/HCPCS: 73501; 80053; 81001; 85014; 85018; 86850; 86900; 86901; 87086; 88304; 88311; 94150; C1776; C9113; J0131; J0690; J2175; J2250; J2270; J2405; J2710; J3010; J7120

== ENCOUNTER → 2016-12-14 | Outpatient (CLI) | payer MEDICARE, OTHER ==
[~2016-12-14] MED LIST: ASPI325T PO; BOSW5TAB PO; DICL75TA PO; DOCU1CAP39 PO; HYDR-3516 PO; LEVA500T PO; MISC-163; POTA550T2 PO; PROT40TA PO; TAMS0.4C4 PO; TRAM-388 PO; TRAM50TA PO; VENTAER INH; WALKER WHEELS/F1 MIS
[2016-12-14 11:47] LABS: BLOOD, URINE NEG (NEG); GLUCOSE,URINE NEG (NEG); KETONE, URINE NEG (NEG); NITRITE,URINE NEG (NEG); URINE COLOR YELLOW (YELLW/STRAW)
[2016-12-14 11:49] LABS: INTERNATIONAL NORMALIZED RATIO 0.9 RATIO; PROTHROMBIN TIME - PATIENT 10.4 SEC (9.8-11.6)
[2016-12-14 11:49] LABS: COMMENT (UR) CULT NOT INDICATED; CULTURE IF INDICATED CULT NOT INDICATED
[2016-12-14 12:06] LABS: AUTOMATED NEUTROPHIL # 3.7 TH/MM3 (1.8-7.7); BASOPHIL # 0.1 TH/MM3 (0-0.2); BASOPHIL % 0.7 % (0.0-2.0); EOSINOPHIL # 0.4 TH/MM3 (0-0.4); EOSINOPHIL % 4.9 % (0.0-4.0); HEMO FLAGS DIFF FINAL; LYMPH % 35.7 % (9.0-44.0); LYMPHOCYTE # 2.6 TH/MM3 (1.0-4.8); MEAN CORPUSCULAR HEMOGLOBIN 30.1 PG (27.0-34.0); MEAN CORPUSCULAR HGB CONC 33.4 % (32.0-36.0); MONO % 7.4 % (0.0-8.0); NEUT % 51.3 % (16.0-70.0); PLATELET COUNT 237 TH/MM3 (150-450); RED CELL DISTRIBUTION WIDTH 13.9 % (11.6-17.2); WHITE BLOOD COUNT 7.2 TH/MM3 (4.0-11.0)
--- NOTE | 2016-12-14 12:06 | RADRPT ---
EXAM DATE/TIME: 12/14/2016 11:43 [facility] COMPARISON: No previous studies available for comparison. INDICATIONS : Evaluate for pneumonia, pneumothorax and communicable diseases. Pre-op hip replacement MEDICAL HISTORY : None. SURGICAL HISTORY : None. ENCOUNTER: Initial ACUITY: 1 day PAIN SCORE: 0/10 LOCATION: Chest FINDINGS: Mild hyperinflation is evident. Herat and pulmonary vascularity are normal. Degenerative changes se en about both shoulders. CONCLUSION: Mild hyperinflation otherwise negative. Harley Rutherford MD FACR on December 14, 2016 at 11:53 Board Certified Radiologist. This report was verified electronically.
[2016-12-14 12:20] LABS: BICARBONATE 28.4 MEQ/L (21.0-32.0); POTASSIUM 4.1 MEQ/L (3.5-5.1)
--- NOTE | 2016-12-16 06:26 | EKG ---
Date Performed: 12/14/2016 Time Performed: 11:05:36 PTAGE: 71 years EKG: Sinus rhythm MODERATE INTRAVENTRICULAR CONDUCTION DELAY BORDERLINE ECG NO PREVIOUS TRACING DOCTOR: Tamanna Arambula Interpretating Date/Time 12/16/2016 06:24:08
== END ==
LOC: CPRE 10:45
PROVIDERS: ATTEND Orthopaedic Surgery
DX: Z01.810 Encounter for preprocedural cardiovascular examination (principal); Z01.812 Encounter for preprocedural laboratory examination; M16.0 Bilateral primary osteoarthritis of hip; R94.31 Abnormal electrocardiogram [ECG] [EKG]
CPT/HCPCS: 36415; 71020; 80048; 81001; 85025; 85610; 93005

== ENCOUNTER 2017-02-15 16:23 | Inpatient (IN) | payer MEDICARE, OTHER ==
[~2017-02-15] VITALS: Ht 177.8 cm; Wt 87.0 kg
[~2017-02-15 16:23] MED LIST changes: -ASPI325T PO; -DICL75TA PO; -HYDR-3516 PO; -LEVA500T PO; -MISC-163; -POTA550T2 PO; -TRAM50TA PO; -WALKER WHEELS/F1 MIS
--- NOTE | 2017-02-20 14:21 | MH ---
cc: KEHINDE CONTE M.D. DATE OF ADMISSION: 03/03/2017 ADMITTING DIAGNOSIS: 1. Severe osteoarthritis of the left hip. 2. Pain left hip.. 3. Gait disturbance. HISTORY OF PRESENT ILLNESS: The patient is a 71-year-old white male who has experienced greater than a two year history of bilateral hip pain, his onset being unrelated to injury or unusual activity. He had undergone previous evaluation and treatment with his primary care physician, Dr. Immanuel Sofia, who had diagnosed the patient has having an arthritic condition for which he was prescribed Voltaren. He initially had noted some trend of improvement but during this interval of time, he began to note recurrent pain and progressively became increasingly more symptomatic with regards to weightbearing activities. He was later seen by the undersigned physician in November of this year, and at that time he reported ongoing difficulties as related to all ambulatory activities. His x-ray studies revealed significant degenerative changes of the hip joints bilaterally which radiographically was actually more pronounced on the left side but clinically the patient was more symptomatic on the right side. He was subsequently admitted to the hospital in December of this year and at that time underwent a right total hip arthroplasty which was completed in an uncomplicated manner. The patient was noted to have tolerated his operative procedure well and his postoperative course was stable thereafter. He was progressively mobilized being permitted weightbearing to tolerance about his right lower extremity with follow up examination of his surgical wound noted to be healing favorably and no evidence of infection. He returned to the office in February of this year reporting that being two months postop he was continuing to do well with regards to his right hip but was becoming increasingly more symptomatic with pain about his left hip that was beginning to interfere with his continued rehabilitation. His current x-ray studies revealed severe degenerative changes of his hip joint with subtotal obliteration of the joint space and early deformation of the femoral head. Findings and treatment options were reviewed with the patient in the presence of his . At that time, the pros and cons of continuing with conservative management versus undergoing further disposition that would involve a left total hip arthroplasty were outlined in detail. Emphasis was made regarding the fact that the decision to proceed with surgery would be left entirely to the patient's discretion. The patient readily admitted that although he was not overly excited about proceeding with additional surgical treatment, he felt that it was necessary to proceed. Accordingly at this time and in compliance with his wishes, he has been scheduled to be admitted in order that left total hip replacement be completed. PAST MEDICAL HISTORY, HOSPITALIZATIONS AND SURGERIES: His past medical history, hospitalizations and surgeries in addition to his recent right total hip arthroplasty have included: 1. Sinus surgery. 2. Surgical correction of a deviated nasal septum. 3. Colonoscopy. 4. Laser surgery for hemorrhoids. 5. Cystoscopy. 6. Medical management for pharyngitis. MEDICAL ILLNESSES: The patient's medical illnesses include his arthritic condition. MEDICATIONS: Current medications have included: 1. Tramadol 50 milligrams PRN pain. 2. Tamsulosin 0.4 milligrams daily. 3. Potassium gluconate 550 milligrams daily. 4. Osteo Biflex twice a day. ALLERGIES: THE PATIENT DENIES ANY KNOWN DRUG ALLERGIES. REVIEW OF SYSTEMS: He does wear glasses. There is been no headache, seizure or syncope. No sinus congestion or epistaxis. Auditory acuity is diminished but not requiring hearing aids. No tinnitus. No bleeding gums or dysphagia. Denies cough, shortness of breath, upper respiratory infection, pneumonia or tuberculosis. No angina or heart disease. Appetite good. Bowel movements regular. No hepatitis, gallbladder disease or ulcers. He has had hemorrhoids in the past. No urinary tract infection. No kidney stones. No prostate disease. No history of fractures. No psychiatric illness. His remaining review of systems is unremarkable and noncontributory. FAMILY HISTORY: The patient has been 41 years. His is 69 years of age and in good health. Three sons, all described as being in good health. Family history is positive for heart disease, emphysema and pancreatic cancer. 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 He completed a high school education. Denies active use of tobacco, ethanol consumption socially, primarily involving beer and wine consumption. PHYSICAL EXAMINATION: HEIGHT: 5 feet 10 inches. WEIGHT: 189 pounds. BMI: 27.1. GENERAL: An alert, oriented responsive 71-year-old white male who sits quietly upon examination table in no obvious distress. HEAD, EYES, EARS, NOSE, THROAT: Pupils are equally round and reactive to light. Extraocular movements full. Sclerae clear. External nares clear. External auditory canals clear. Dental intact. Mucous membranes pink and moist. Pharynx clear. NECK: The neck is supple. Active mobility with no associated pain. Carotid pulse palpable bilaterally. Trachea midline. Thyroid without enlargement. LUNGS: Clear to auscultation and percussion. No CVA tenderness. No discomfort throughout the dorsal or lumbar spine. HEART: Regular rhythm. No murmur or gallop. ABDOMEN: Abdomen is soft, nontender. Bowel sounds present. RECTAL: Deferred. EXTREMITIES: Left hip - There is no localizing tenderness to palpation. There is restricted mobility of the hip joint especially involving internal rotation and pain associated with the extremes of motion. No crepitation or instability. Straight-leg raising is negative at 80 degrees. Chente's sign is positive. Distal sensory intact. Pronounced antalgic gait with cane support. NEUROLOGIC: Cranial nerves II-XII grossly intact. IMPRESSION: 1. Severe osteoarthritis of the left hip. 2. Pain left hip. 3. Gait disturbance. PLAN: Left total hip arthroplasty. Once again the nature of the planned surgical procedure, the potential complications and risks associated, the expectations of surgery and the consent form were thoroughly reviewed with the patient in the presence of his prior to admission to the hospital. Kunal has indicated a full understanding regarding all of the above and has given consent to proceed with treatment as outlined. Medical clearance for surgery will again be completed per Dr. Sofia. ADDENDUM The patient is a 71-year-old white male who has had a greater than two-year history of symptoms involving his left hip. The onset of his discomfort was unrelated to injury or unusual activity and the patient had undergone initial evaluation with his primary care physician who diagnosed him as having an arthritic condition for which the patient initiated conservative management. Over the following two-year interval of time, the patient has utilized a number of prescribed medications including Voltaren, Tramadol, Flexeril and Ultram none of which have afforded the patient any long-term benefit. He has also utilized various [id number] products including Glucosamine an Osteo-Bioflex. He had initially conformed to exercise activities under his own supervision, but because of progressive pain about his left hip, he subsequently had to modify all activities of daily living especially as related to weightbearing stress about his left hip. His symptoms were such degree that they also interfered with his ability to sleep comfortably through the night and, with the passage of time, he subsequently required use of a cane as a full-time ambulatory aid. He had undergone previous therapy intervention that unfortunately had not proven to be of any long-term benefit. The patient became significantly incapacitated with regards to all activities of daily living and, given the progressive nature of his pain, he presented to the office expressing his desire to proceed with a more definitive course of treatment. He had undergone a previous right total hip arthroplasty for which he was well aware of the involvement of surgery and the potential benefit that it might afford him. Given the favorable response that he had noted in the past in conjunction with the failure to respond to all modes of nonoperative intervention, the patient had expressed his desire to proceed with surgery involving total hip replacement. Noting his overall clinical picture and his request to proceed accordingly, he is presently being admitted to the hospital for total hip replacement of his left hip given his complete failure to respond to all modes of conservative management rendered. MD ANDRES Jimenes/NGOC /12:47 PM /8:28 AM
[2017-02-23] MEDS ORDERED: DICL50TA PO (10:28)
[2017-03-03] MEDS ORDERED: POVIDONE IODINE 5% (ANTISEPSIS KIT) 4 APPLICATIONS EACH NARE PRN (05:30)
[2017-03-03] MEDS ORDERED: INSULIN HUMAN REGULAR 1,000 UNITS/10 ML VIAL SQ PRN (05:30)
[2017-03-03] MEDS ORDERED: LACTATED RINGER'S 1000 ML IV PRN (05:30)
[2017-03-03] MEDS ORDERED: METOPROLOL TARTRATE 25 MG TAB PO PRN (05:30)
[2017-03-03] MEDS ORDERED: CHLORHEXIDINE GLUCONATE 2 % 1 PACK (2 CLOTHS) TOPICAL PRN (05:30)
[2017-03-03] MEDS ORDERED: SODIUM CHLORID 0.9% 500 ML IV PRN (05:30)
[2017-03-03] MEDS ORDERED: TRANEXAMIC ACID 1 GM PRIOR TO PROCEDURE IV SCH ×2 (05:45)
[2017-03-03] MEDS ORDERED: POVIDONE IODINE 7.5% SCRUB 118 ML BOTTLE TOPICAL SCH (05:45)
[2017-03-03] MEDS ORDERED: ceFAZolin 2 GM PREMIX 50 ML IV SCH (05:45)
[2017-03-03] MEDS ORDERED: TRANEXAMIC ACID 1 GM POST-OP IV SCH ×2 (05:45)
[2017-03-03 05:52] VITALS: BP 154/83; PULSE 71; RESP 16; TEMP 98.2; O2SAT 97
[2017-03-03] MEDS ORDERED: ceFAZolin INJ 1,000 MG VIAL ONE (05:57)
[2017-03-03] MEDS ORDERED: APREPITANT 40 MG CAP ONE ×2 (06:39→06:40)
[2017-03-03] MEDS ORDERED: DEXAMETHASONE SOD PHOS 4 MG/ML VIAL ONE (06:39)
[2017-03-03] MEDS ORDERED: FAMOTIDINE 20 MG/2 ML VIAL ONE (06:40)
[2017-03-03] MEDS ORDERED: DO NOT ADM ANY ANTICOAGULANT DRUGS PRN (10:06)
[2017-03-03] MEDS ORDERED: ACETAMINOPHEN 325 MG TAB PO PRN (10:15)
[2017-03-03] MEDS ORDERED: DOCUSATE SODIUM 100 MG CAP PO PRN (10:15)
[2017-03-03] MEDS ORDERED: ZOLPIDEM TARTRATE 5 MG TAB PO PRN (10:15)
[2017-03-03] MEDS ORDERED: SODIUM CHLORIDE 0.9% FLUSH 5 ML FLUSH IVF PRN (10:15)
[2017-03-03] MEDS ORDERED: MISCELLANEOUS PHARMACY INFORMATION XX ONE ×2 (10:15→11:30)
[2017-03-03] MEDS ORDERED: TRANEXAMIC ACID INJ 1,000 MG in SODIUM CHLORIDE 0.9% INJ 100 ML IV SCH (10:15)
[2017-03-03] MEDS ORDERED: NALOXONE HCL 0.4 MG/ML AMP IV PRN ×2 (10:15→11:45)
[2017-03-03] MEDS ORDERED: PROMETHAZINE INJ 25 MG/ML VIAL IM PRN (10:15)
[2017-03-03] MEDS ORDERED: ONDANSETRON HCL 4 MG/2 ML VIAL IVP PRN (10:15)
[2017-03-03] MEDS ORDERED: diphenhydrAMINE HCL 25 MG CAP PO PRN (10:15)
[2017-03-03] MEDS ORDERED: Post-op Orders (for Pharmacy) MISC XX ONE (10:15)
[2017-03-03] MEDS ORDERED: fentaNYL CITRATE 250 MCG/5 ML AMP ONE (10:15)
[2017-03-03] MEDS ORDERED: MIDAZOLAM HCL 2 MG/2 ML VIAL ONE (10:15)
[2017-03-03] MEDS ORDERED: *HYDROmorphone PF 1 MG VIAL PERIprocedural Use ONLY ONE (10:23)
[2017-03-03] MEDS ORDERED: HYDROmorphone HCL PCA 6 MG/30 ML IV ONE (10:29)
[2017-03-03] MEDS: DEXT 5%-NACL 0.45% 1000 ML INJ 1,000 ML IV SCH ×2 (10:32→20:13)
--- NOTE | 2017-03-03 11:28 | RADRPT ---
EXAM DATE/TIME: 03/03/2017 10:30 [facility] COMPARISON: No previous studies available for comparison. INDICATIONS : Post left hip surgery. MEDICAL HISTORY : Unobtainable. SURGICAL HISTORY : Unobtainable ENCOUNTER: Initial ACUITY: 1 day PAIN SCORE: Non-responsive. LOCATION: Left Hip FINDINGS: The patient is status-post left hip replacement with prosthesis in good position. CONCLUSION: Status-post left hip replacement with prosthesis in good position. Sabas Hansen MD on March 03, 2017 at 11:20 Board Certified Radiologist. This report was verified electronically.
[2017-03-03] MEDS ORDERED: ALBUTEROL SULFATE 90 MCG/ACT HFA 18 GM INHALER INH PRN (11:45)
[2017-03-03] MEDS ORDERED: HYDROmorphone HCL PCA 6 MG/30 ML IV SCH (11:45)
[2017-03-03 13:40] VITALS: BP 116/62; PULSE 85; RESP 16; TEMP 96; O2SAT 63
[2017-03-03] MEDS ORDERED: PCA - TOTAL MG MORPHINE DELIVERED PER SHIFT SCH (14:00)
[2017-03-03] MEDS ORDERED: ePHEDrine/NS 25 MG/5 ML SYR IV ONE (15:36)
[2017-03-03] MEDS ORDERED: PROPOFOL 200 MG/20 ML AMP IV ONE (15:36)
[2017-03-03] MEDS ORDERED: NEOSTIGMINE 3 MG/3 ML SYR IV ONE (15:37)
[2017-03-03] MEDS ORDERED: PHENYLEPH/NS 1000 MCG/10 ML SYR IV ONE (15:37)
[2017-03-03] MEDS ORDERED: LACTATED RINGER'S 1000 ML INJ 1,000 ML IV ONE (15:37)
[2017-03-03] MEDS ORDERED: ONDANSETRON HCL 4 MG/2 ML VIAL IV PUSH ONE (15:37)
[2017-03-03] MEDS: PCA - TOTAL MG DILAUDID DELIVERED PER SHIFT SCH ×2 (16:05→21:58)
[2017-03-03 16:46] VITALS: BP 116/69; PULSE 76; RESP 16; TEMP 96; O2SAT 96
--- NOTE | 2017-03-03 17:06 | PD.CONS ---
HPI Service [facility] Hospitalists Consult Requested By Zeke Chaney M.D. Reason for Consult Medical Management Primary Care Physician Lance Sofia DO Diagnoses: History of Present Illness Written by Joseph Myers, acting as scribe for Dr. David Fields on 03/03/17 at 17:07. Mr. Cardoso is 71, with history of arthritis, asthma, GERD, and benign prostatic hypertrophy. Pt reprots all of his health conditions are "stable." Mr. Cardoso underwent left total hip arthroplasty at [facility] on 03/03/[address] Chaney. The hospitalist team was consulted to medically manage his health issues. At time of interview, Mr. Cardoso reported left hip pain which was being addressed through Dilaudid PLANT MAINTENANCE ENGINEER as well as Tramadol. He denied fever, nausea, vomiting, shortness of breath. He reported having had a urinary catheter placed "but they took it out this morning." He denied having yet had a bowel movement. He reported no wheezing, which he said was usually allergy induced. Review of Systems Except as stated in HPI: all other systems reviewed are Neg Past Family Social History Allergies: Coded Allergies: Cat Dander (Verified Allergy, Severe, Skin Discoloration, 03/03/17) Morphine (Verified Adverse Reaction, Severe, Nausea/Vomiting, 03/03/17) Past Medical History Arthritis Benign prostatic hypertrophy Asthma Deviated septum GERD Hemorrhoids . Past Surgical History Surgical correction of deviated septum Laser surgery of hemorrhoids Reported Medications Reported Meds & Active Scripts Active Dok (Docusate Sodium) 100 Mg Cap 100 Mg PO BID Tramadol-Acetaminophen 37.5-325 mg Tab 1 Tab PO Q6HR PRN Protonix (Pantoprazole Sodium) 40 Mg Tab 40 Mg PO DAILY Reported Diclofenac Potassium 50 Mg Tab 50 Mg PO TID Ventolin Hfa 18 GM Inh (Albuterol Sulfate) 90 Mcg/Act Aer 2 Puff INH Q4H PRN Osteo Bi-Flex One A Day (Xbnzhigpn-Iswqzpdxbrt-Joaqudh) 1 Tab 1 Tab PO DAILY Tamsulosin (Tamsulosin HCl) 0.4 Mg Cap 0.4 Mg PO HS Active Ordered Medications Current Medications Medications (Trade) Dose Ordered Sig/Xuan Route Start Time Stop Time Status Last Admin Lactated Ringer's 1,000 ml @ 30 mls/hr Q24H PRN IV 03/03/17 05:30 7/29/17 05:29 03/03/17 05:45 (NS 500 ml Inj) 500 ml @ 30 mls/hr [id number] PRN IV 03/03/17 05:30 03/06/17 05:29 Povidone Iodine 1 applic 1 applic ONCE TOPICAL 03/03/17 05:45 03/06/17 05:44 (D5W-1/2 NS 1000 ml Inj) 1,000 ml @ 125 mls/hr Q8H IV 03/03/17 11:00 03/03/17 10:32 (NS Flush) 2 ml UNSCH PRN IVF 03/03/17 10:15 IV Flush 2 ml 2 ml BID IVF 03/03/17 21:00 (Ancef Inj/NS Inj) 100 ml @ 200 mls/hr Q6H IV 03/03/17 14:00 03/04/17 02:29 03/03/17 13:20 (Xarelto) 10 mg Q24H PO 03/04/17 09:00 (Ultram) 50 mg Q4H PRN PO 03/03/17 10:15 (Ultram) 100 mg Q4H PRN PO 03/03/17 10:15 (Tylenol) 650 mg Q6H PRN PO 03/03/17 10:15 (Zofran Inj) 4 mg Q6H PRN IVP 03/03/17 10:15 (Ambien) 5 mg HS PRN PO 03/03/17 10:15 (Milk Of Magnesia Liq) 30 ml DAILY PRN PO 03/03/17 10:15 (Benadryl) 25 mg Q6H PRN PO 03/03/17 10:15 (Phenergan Inj) 25 mg Q6H PRN IM 03/03/17 10:15 Miscellaneous Information ALL NURSING DEPARTME... UNSCH PRN .XX 03/03/17 10:06 03/04/17 10:05 (Ventolin Hfa Inh) 2 puff Q4H PRN INH 03/03/17 11:45 (Colace) 100 mg BID PO 03/03/17 21:00 (Protonix) 40 mg DAILY PO 03/04/17 09:00 (Flomax) 0.4 mg HS PO 03/03/17 21:00 (Dilaudid PLANT MAINTENANCE ENGINEER Inj) 6 mg UNSCH IV 03/03/17 11:45 03/03/17 10:32 PLANT MAINTENANCE ENGINEER Dosage Infused (Pha) 1 Q8HR .XX 03/03/17 14:00 03/03/17 16:05 (Narcan Inj) 0.4 mg UNSCH PRN IV 03/03/17 11:45 Family History Positive history for Emphysema Heart disease Pancreatic Cancer Social History Denied nicotine use Denied illicit/recreational drugs. Endorsed social use of alcohol (beer and wine). Physical Exam Vital Signs Vital Signs Date Time Temp Pulse Resp B/P Pulse Ox O2 Delivery O2 Flow Rate FiO2 03/03/17 16:05 16 03/03/17 13:40 96.0 85 16 116/62 63 03/03/17 13:00 97.3 81 13 117/59 97 Nasal Cannula 2 03/03/17 12:10 86 14 115/55 96 Nasal Cannula 2 03/03/17 12:01 89 13 118/59 97 Nasal Cannula 2 03/03/17 12:00 86 18 118/62 95 Nasal Cannula 2 03/03/17 11:00 87 13 119/56 97 Nasal Cannula 2 03/03/17 10:45 78 13 111/55 100 Nasal Cannula 2 03/03/17 10:32 14 03/03/17 10:30 77 13 117/57 97 Nasal Cannula 2 03/03/17 10:15 79 16 100/56 100 Nasal Cannula 2 03/03/17 10:09 98.3 76 16 111/58 96 Simple Mask 6 03/03/17 05:52 98.2 71 16 154/83 97 Physical Exam GENERAL: This is a well-nourished, well-developed patient, in no apparent distress. SKIN: No rashes, ecchymoses or lesions. Cool and dry. HEAD: Atraumatic. Normocephalic. EYES: Pupils equal round and reactive. Extraocular motions intact. No scleral icterus. No injection or drainage. ENT: Nose without bleeding or purulent drainage. Airway patent. NECK: Trachea midline. No JVD or lymphadenopathy. Supple and nontender. CARDIOVASCULAR: Regular rate and rhythm without murmurs, gallops, or rubs. RESPIRATORY: Clear to auscultation. Breath sounds equal bilaterally. No wheezes , rales, or rhonchi. GASTROINTESTINAL: Abdomen soft, non-tender, nondistended. No guarding. MUSCULOSKELETAL: Extremities without clubbing, cyanosis, or edema. No joint tenderness, effusion, or edema noted. ABD pillow present as were bilateral SCD's NEUROLOGICAL: Awake and alert. Cranial nerves II through XII intact. Motor and sensory grossly within normal limits. Five out of 5 muscle strength in upper extremity. Speech was clear and fluent. Laboratory Laboratory Tests Test 03/03/17 05:50 Blood Type O POSITIVE Antibody Screen NEGATIVE Imaging Last Impressions Hip X-Ray 03/03/17 1012 Signed Impressions: Service Date/Time: Wednesday, March 03, 2017 10:30 - CONCLUSION: Status-post left hip replacement with prosthesis in good position. Sabas Hansen MD Assessment and Plan Problem List: (1) Degenerative joint disease (DJD) of hip ICD Code: M16.9 Status: Chronic (2) Asthma ICD Code: J45.909 Status: Chronic (3) BPH (benign prostatic hyperplasia) ICD Code: N40.0 Status: Chronic (4) GERD (gastroesophageal reflux disease) ICD Code: K21.9 Status: Chronic Assessment and Plan Mr. Cardoso is 71, with history of arthritis, asthma, GERD, and benign prostatic hypertrophy. Pt reports all of his health conditions are "stable." Mr. Cardoso underwent left total hip arthroplasty at [facility] on 03/03/[address] Chaney. Degenerative joint disease-left hip -Rehabilitation per orthopedics. -Pain management with Dilaudid PLANT MAINTENANCE ENGINEER and tramadol Asthma -Albuterol PRN Benign Prostatic hypertrophy -Continue home regimen of Tamsulosin 0.4 mg q hs with hold parameters GERD Protonix 40 mg PO daily. DVT prophylaxis: Xarelto and SCD's Discussed Condition With Discussed with patient and his (who was at the bedside). This note was transcribed by hailey Myers. I, Dr. David Fields personally performed the history, physical exam, and medical decision making; and confirmed the accuracy of the information in the transcribed note. Authenticated by Dr. David Fields on 03/03/17 at 17:10. Problem Qualifiers (1) Degenerative joint disease (DJD) of hip: Qualified Code: M16.12 - Osteoarthritis of left hip, unspecified osteoarthritis type (2) Asthma: Qualified Code: J45.20 - Mild intermittent asthma without complication (3) BPH (benign prostatic hyperplasia): Qualified Code: N40.0 - Benign prostatic hyperplasia without lower urinary tract symptoms (4) GERD (gastroesophageal reflux disease): Qualified Code: K21.9 - Gastroesophageal reflux disease without esophagitis Joseph Myers Jr. Mar 03, 2017 17:06 David Fields MD Mar 03, 2017 17:34
[2017-03-03 20:10] VITALS: BP 119/62; PULSE 83; RESP 18; TEMP 97.9; O2SAT 97
[2017-03-03] MEDS: DOCUSATE SODIUM 100 MG CAP PO SCH (20:11)
[2017-03-03] MEDS: TAMSULOSIN HCL 0.4 MG CAP PO SCH (20:11)
[2017-03-03] MEDS: SODIUM CHLORIDE 0.9% FLUSH 5 ML FLUSH IVF SCH (20:11)
[2017-03-04 00:40] VITALS: BP 123/63; PULSE 85; RESP 18; TEMP 99.7; O2SAT 95
[2017-03-04] MEDS: DEXT 5%-NACL 0.45% 1000 ML INJ 1,000 ML IV SCH ×3 (02:39→19:00)
[2017-03-04 04:10] VITALS: BP 129/60; PULSE 81; RESP 18; TEMP 99.9; O2SAT 96
[2017-03-04] MEDS ORDERED: ULTR50TA5 PO (06:16)
[2017-03-04] MEDS ORDERED: ASPI325T PO (06:16)
--- NOTE | 2017-03-04 06:19 | HHI.FF ---
Face to Face Verification Diagnosis: (1) Degenerative joint disease (DJD) of hip Physical Therapy Gait training Hip: Total hip, Protocol: Left, Abduction pillow while in bed Left LE Weight Bearing: WB as tolerated Left LE Range of Motion: Active ROM Nursing Dressing Changes: Daily dressing change I have seen patient Kunal Cardoso on 03/04/17. My clinical findings support the need for the requested home health care services because: Limited ability to care for self High risk of falls I certify that my clinical findings support that this patient is homebound because: Post-op weakness Unsteady gait/balance Unsafe to leave home unassisted Zeke Chaney MD Mar 04, 2017 06:19
[2017-03-04] MEDS ORDERED: WALKER WHEELS/F1 MIS (06:21)
[2017-03-04] MEDS ORDERED: COMMODE 3-IN-11 MIS (06:21)
[2017-03-04] MEDS: PCA - TOTAL MG DILAUDID DELIVERED PER SHIFT SCH ×4 (06:24→20:44)
[2017-03-04 08:00] VITALS: BP 121/58; PULSE 76; RESP 18; TEMP 98.2; O2SAT 96
[2017-03-04 08:12] LABS: HEMATOCRIT 33.3 % (39.0-51.0); REVIEW FLAG FINAL
[2017-03-04] MEDS: traMADol HCL 50 MG TAB PO PRN ×3 (09:23→19:33)
[2017-03-04] MEDS: DOCUSATE SODIUM 100 MG CAP PO SCH ×2 (09:33→19:34)
[2017-03-04] MEDS: MAGNESIUM HYDROXIDE SUSP 30 ML CUP PO PRN ×2 (09:33→19:34)
[2017-03-04] MEDS: RIVAROXABAN 10 MG TAB PO SCH (09:33)
[2017-03-04] MEDS: PANTOPRAZOLE SOD 40 MG DELAYED RELEASE TAB PO SCH (09:33)
[2017-03-04] MEDS: SODIUM CHLORIDE 0.9% FLUSH 5 ML FLUSH IVF SCH ×2 (09:34→19:34)
[2017-03-04] MEDS ORDERED: ALUMINUM/MAGNESIUM/SIMETH 30 ML CUP PO PRN (11:30)
[2017-03-04] MEDS ORDERED: ONDANSETRON ODT 4 MG TAB PO PRN (11:30)
--- NOTE | 2017-03-04 11:33 | HHI.PR ---
Subjective Remarks Complaints of dyspepsia today. Pain is not fully controlled patient is trying to use minimum amount of pain treatments possible. Was encouraged to upgrade his pain treatments if his current pain treatments do not hold his pain. No other complaints. Objective Vital Signs Date Time Temp Pulse Resp B/P Pulse Ox O2 Delivery O2 Flow Rate FiO2 03/04/17 08:00 98.2 76 18 121/58 96 03/04/17 06:24 16 03/04/17 04:10 99.9 81 18 129/60 96 03/04/17 00:40 99.7 85 18 123/63 95 03/03/17 21:58 17 03/03/17 20:10 97.9 83 18 119/62 97 03/03/17 16:46 96.0 76 16 116/69 96 03/03/17 16:05 16 03/03/17 13:40 96.0 85 16 116/62 63 03/03/17 13:00 97.3 81 13 117/59 97 Nasal Cannula 2 03/03/17 12:10 86 14 115/55 96 Nasal Cannula 2 03/03/17 12:01 89 13 118/59 97 Nasal Cannula 2 03/03/17 12:00 86 18 118/62 95 Nasal Cannula 2 I/O 03/03/17 03/03/17 03/03/17 03/04/17 03/04/17 03/04/17 06:59 14:59 22:59 06:59 14:59 22:59 Intake Total 2033 ml 1000 ml 120 ml Output Total 900 ml 420 ml 500 ml Balance 1133 ml 580 ml -380 ml Intake Oral 30 ml 600 ml 120 ml IV Total 403 ml 400 ml Other 1600 ml Output Urine Total 700 ml 420 ml 500 ml Estimated Blood Loss 200 ml # Voids 2 1 # Bowel Movements 0 Result Diagram: 03/04/17 0637 Objective Remarks GENERAL: NAD, A&Ox3 HEAD: Normocephalic. NECK: Supple, trachea midline. No lymphadenopathy. EYES: No scleral icterus. No injection or drainage. CARDIOVASCULAR: Regular rate and rhythm without murmurs, gallops, or rubs. RESPIRATORY: Breath sounds equal bilaterally. No accessory muscle use. GASTROINTESTINAL: Abdomen soft, non-tender, nondistended. MUSCULOSKELETAL: No cyanosis, or edema. Dressings at left hip wound. SKIN: Warm and dry. NEURO: No focal neurological deficitis. A/P Problem List: (1) Degenerative joint disease (DJD) of hip ICD Code: M16.9 (2) Asthma ICD Code: J45.909 (3) BPH (benign prostatic hyperplasia) ICD Code: N40.0 Assessment and Plan Assessment and Plan 71-year-old male status post total left hip surgery Total left hip Continue physical therapy Continue pain treatment with tramadol Follow for pain control Orthopedic surgery following Dyspepsia GERD When necessary Mylanta Protonix When necessary Zofran Asthma No exacerbation Continue albuterol as needed Benign Prostatic hypertrophy Continue tamsulosin Follow clinically DVT prophylaxis Xarelto and SCDs Discharge planning Patient notes discharge to home once physically stable Problem Qualifiers (1) Degenerative joint disease (DJD) of hip: Qualified Code: M16.12 - Osteoarthritis of left hip, unspecified osteoarthritis type (2) Asthma: Qualified Code: J45.20 - Mild intermittent asthma without complication (3) BPH (benign prostatic hyperplasia): Qualified Code: N40.0 - Benign prostatic hyperplasia without lower urinary tract symptoms Dave Catherine MD Mar 04, 2017 11:33
[2017-03-04 12:00] VITALS: BP 137/70; PULSE 79; RESP 18; TEMP 99.3; O2SAT 99
[2017-03-04 16:00] VITALS: BP 138/69; PULSE 84; RESP 18; TEMP 98.1; O2SAT 97
[2017-03-04] MEDS: TAMSULOSIN HCL 0.4 MG CAP PO SCH (19:34)
[2017-03-04 20:40] VITALS: BP 142/69; PULSE 79; RESP 17; TEMP 99.8; O2SAT 96
[2017-03-05] MEDS: traMADol HCL 50 MG TAB PO PRN ×4 (00:03→13:17)
[2017-03-05 00:40] VITALS: BP 130/69; PULSE 85; RESP 17; TEMP 99.7; O2SAT 96
[2017-03-05] MEDS: DEXT 5%-NACL 0.45% 1000 ML INJ 1,000 ML IV SCH ×2 (01:39→11:00)
[2017-03-05 06:28] LABS: HEMATOCRIT 31.9 % (39.0-51.0); MEAN CELL VOLUME 87.8 FL (80.0-100.0); MEAN CORPUSCULAR HEMOGLOBIN 29.3 PG (27.0-34.0); MEAN CORPUSCULAR HGB CONC 33.4 % (32.0-36.0); PLATELET COUNT 251 TH/MM3 (150-450); RED BLOOD COUNT 3.63 MIL/MM3 (4.50-5.90); RED CELL DISTRIBUTION WIDTH 15.2 % (11.6-17.2); REVIEW FLAG FINAL; WHITE BLOOD COUNT 14.6 TH/MM3 (4.0-11.0)
[2017-03-05 07:01] LABS: BICARBONATE 27.5 MEQ/L (21.0-32.0); POTASSIUM 3.7 MEQ/L (3.5-5.1)
[2017-03-05 08:00] VITALS: BP 105/67; PULSE 87; RESP 18; TEMP 97; O2SAT 98
[2017-03-05] MEDS: SODIUM CHLORIDE 0.9% FLUSH 5 ML FLUSH IVF SCH (09:28)
[2017-03-05] MEDS: RIVAROXABAN 10 MG TAB PO SCH (09:29)
[2017-03-05] MEDS: PANTOPRAZOLE SOD 40 MG DELAYED RELEASE TAB PO SCH (09:29)
[2017-03-05] MEDS: DOCUSATE SODIUM 100 MG CAP PO SCH (09:29)
[2017-03-05] MEDS ORDERED: DOCU100C PO (10:36)
--- NOTE | 2017-03-05 10:50 | HHI.PR ---
Subjective Remarks Patient is ambulatory better than expected with a tube. Patient with who have agreed with the discharge today rather than waiting for tomorrow. I agree patient is medically stable and functional mobility to return to home at this point. Objective Vital Signs Date Time Temp Pulse Resp B/P Pulse Ox O2 Delivery O2 Flow Rate FiO2 03/05/17 08:00 97.0 87 18 105/67 98 03/05/17 00:40 99.7 85 17 130/69 96 03/04/17 20:40 99.8 79 17 142/69 96 03/04/17 16:00 98.1 84 18 138/69 97 03/04/17 14:00 18 03/04/17 12:00 99.3 79 18 137/70 99 I/O 03/04/17 03/04/17 03/04/17 03/05/17 03/05/17 03/05/17 07:00 15:00 23:00 07:00 15:00 23:00 Intake Total 120 ml 1545 ml 240 ml 120 ml Output Total 500 ml 550 ml 400 ml Balance -380 ml 995 ml -160 ml 120 ml Intake Oral 120 ml 660 ml 240 ml 120 ml IV Total 885 ml Output Urine Total 500 ml 550 ml 400 ml # Voids 1 2 # Bowel Movements 0 1 Result Diagram: 03/05/17 0545 03/05/17 0545 Objective Remarks GENERAL: NAD, A&Ox3 HEAD: Normocephalic. NECK: Supple, trachea midline. No lymphadenopathy. EYES: No scleral icterus. No injection or drainage. CARDIOVASCULAR: Regular rate and rhythm without murmurs, gallops, or rubs. RESPIRATORY: Breath sounds equal bilaterally. No accessory muscle use. GASTROINTESTINAL: Abdomen soft, non-tender, nondistended. MUSCULOSKELETAL: No cyanosis, or edema. Dressings at left hip wound. SKIN: Warm and dry. NEURO: No focal neurological deficitis. A/P Problem List: (1) Degenerative joint disease (DJD) of hip ICD Code: M16.9 (2) Asthma ICD Code: J45.909 (3) BPH (benign prostatic hyperplasia) ICD Code: N40.0 Assessment and Plan Assessment and Plan 71-year-old male status post total left hip surgery. Discharge to home today. Continue outpatient tramadol. When necessary Colace for any constipation. Resume other home treatments. Total left hip Continue physical therapy Continue pain treatment with tramadol Follow for pain control Orthopedic surgery following Dyspepsia GERD When necessary Mylanta Protonix When necessary Zofran Asthma No exacerbation Continue albuterol as needed Benign Prostatic hypertrophy Continue tamsulosin Follow clinically DVT prophylaxis Xarelto and SCDs Discharge planning Patient notes discharge to home once physically stable Problem Qualifiers (1) Degenerative joint disease (DJD) of hip: Qualified Code: M16.12 - Osteoarthritis of left hip, unspecified osteoarthritis type (2) Asthma: Qualified Code: J45.20 - Mild intermittent asthma without complication (3) BPH (benign prostatic hyperplasia): Qualified Code: N40.0 - Benign prostatic hyperplasia without lower urinary tract symptoms Dave Catherine MD Mar 05, 2017 10:50 am
[2017-03-05 11:40] VITALS: O2SAT 96
[2017-03-05 12:07] VITALS: BP 98/69; PULSE 82; RESP 18; TEMP 97.2; O2SAT 95
[2017-03-05] MEDS: PCA - TOTAL MG DILAUDID DELIVERED PER SHIFT SCH (13:16)
--- NOTE | 2017-03-05 14:11 | MP ---
cc: KEHINDE CHANEY DATE OF SURGERY: 03/03/2017 PREOPERATIVE DIAGNOSIS Severe osteoarthritis of the left hip, pain of the left hip, and gait disturbance. POSTOPERATIVE DIAGNOSIS Severe osteoarthritis of the left hip, pain of the left hip, and gait disturbance. PROCEDURE Left total hip arthroplasty. SURGEON Ritu ANESTHESIA General endotracheal. INDICATION This is a 71-year-old white male with a two-year history of pain in his left hip of gradual onset unrelated to injury or unusual activity. He had undergone previous evaluation with his primary care physician at which time he was diagnosed as having an arthritic condition for which he was initiated into a course of conservative management. During this two-year interval of time he utilized a number of prescribed medications including Voltaren, Tramadol, Flexeril and Ultram, none of which afforded him any long-term benefit. He was also utilizing various [id number]-lgaoyun products including glucosamine and Osteo-BiFlex. He initially conformed to exercise activities under his own supervision but became progressively more symptomatic with pain and subsequently had to modify all activities of daily living as related to weightbearing stress. His symptoms were of such a degree that they interfered with his ability to sleep comfortably through the night and with the passage of time he began to require the use of a cane as a full-time ambulatory aid. He had undergone previous therapy intervention that unfortunately had not proven to be of any long-term benefit. He became significantly incapacitated with regards to all daily routine and given the progressive nature of his pain he had indicated his desire to proceed with a more definitive course of treatment. His history was significant for having undergone a previous right total hip arthroplasty for which he was well aware of the involvement of surgery and the potential benefit that it might afford him. Given the favorable response that he had noted in the past in conjunction with failure to respond to all modes of nonoperative intervention, the patient expressed a desire to proceed with surgery involving total hip replacement. Noting his overall clinical picture and his requested to proceed accordingly he is presently being admitted to the hospital in order that total hip replacement be completed. FORMAT Following the induction of satisfactory general anesthesia by endotracheal intubation as completed per the Department of Anesthesia, the patient was positioned upon the operating table in a right lateral decubitus fashion. The left hip and lower extremity proper were isolated with a U-drape thereafter being prepped with Betadine solution and draped into a sterile field in the routine manner. Prior to initiation of the actual procedure the standard timeout protocol was completed. All parameters were appropriately addressed and confirmed by operating room personnel. A standard posterolateral approach to the hip was initiated through a sharp skin incision developed through underlying subcutaneous tissue. Hemostasis maintained by electrocautery. By deepening dissection the fascia overlying the gluteus musculature was exposed and thereafter sharply incised to the limits of the incision. The underlying gluteus fibers were divided with the Bovie on cutting current. Progressive dissection facilitated exposure of the short external rotators structures. The piriformis tendon was utilized as an anatomical landmark and division of these structures completed in a superior to inferior orientation and reflected medially exposing the posterior capsule. The sciatic nerve was protected. An L-shaped capsulotomy was accomplished in which a posterior dislocation of the femoral head was completed. Examination revealed severe degenerative changes with complete erosion of articular cartilage and subchondral bone exposed as well as hypertrophic bone along the margins of the femoral head. The femoral template was positioned for alignment orientation. The neck was scored and thereafter divided with power saw, the amputated segment being passed to the back table as a surgical specimen. Attention was initially directed to the proximal femur. Cancellous bone was harvested. A tapered reamer was inserted for alignment orientation. Sequential rasping and broaching was accomplished from 8 through 13 mm with calcar rosalba being utilized at the 13 mm stage. The 13 mm stem was determined to be a favorable fit. Trial component being removed attention was redirected to the acetabulum. The labrum and reactive soft tissue were sharply excised. Progressive reaming was accomplished from 50 through 58 mm. The 58 mm trial shell was positioned and determined to be satisfactory. Trial components being removed the wound was copiously irrigated with pulsating antibiotic solution. Hemostasis maintained by electrocautery. Harvested cancellous bone was digitally impacted into the depths of the acetabulum and thereafter a 58 mm ring lock acetabular shell was firmly seated in approximately 45 degrees inclination to the horizontal and slight anteversion. A single 25 mm, 6.5 cancellous screw was inserted superiorly to augment fixation. The permanent high wall acetabular liner was affixed to the acetabular shell. The 13 mm trial femoral broach was repositioned and a trial reduction followed utilizing a 36 mm modular head with -6 mm neck length adapter. The hip readily reduced and was carried through a passive range of motion. Stability demonstrated 90 degrees flexion and 45 degrees internal rotation. An open dislocation was completed. Trial femoral components being removed the canal was thoroughly irrigated and dried and thereafter the 13 mm Echo Bi-Metric standard femoral stem was firmly seated to which a 36 mm ceramic head with -6 mm neck length adapter attached. Open reduction completed and repeat range of motion again noted stability as previously described. Final irrigation was accomplished. Hemostasis maintained by electrocautery. The posterior capsule was repaired with 0 Vicryl suture. The piriformis tendon and short external rotator structures were re-approximated in a similar fashion. The fascia of the gluteus musculature was re-approximated with a running 0 Vicryl suture. The remaining portion of the wound was closed in layers in the routine manner, skin margins being re-approximated with a running subcuticular 3-0 Vicryl suture over which Steri-Strips were applied. Xeroform gauze and a bulky dry sterile dressing were placed. The patient was repositioned into a supine orientation. When an abduction splint was attached anesthesia was discontinued. He was thereafter transferred to a hospital bed and returned to the recovery room in satisfactory condition having tolerated his operative procedure well. Estimated blood loss was approximately 200 cc as determined per Anesthesia. All implants were of the Biomet cell room operator. Kehinde Chaney MD NBS/BT /10:03 AM /1:37 PM
== END 2017-03-05 13:55 | disposition home or self-care (01) | DRG 470 ==
LOC: HSDI 03-03 05:10 → N06B 03-03 13:31
PROVIDERS: ADMIT Orthopaedic Surgery; ATTEND Orthopaedic Surgery
PROC: 0SRB0JA Replacement of Left Hip Joint with Synthetic Substitute, Uncemented, Open Approach (ICD-10-PCS; principal; 2017-03-03 06:40)
DX: M16.12 Unilateral primary osteoarthritis, left hip (principal); Z96.641 Presence of right artificial hip joint; J45.909 Unspecified asthma, uncomplicated; K21.9 Gastro-esophageal reflux disease without esophagitis; N40.0 Benign prostatic hyperplasia without lower urinary tract symptoms
CPT/HCPCS: 73501; 80048; 85014; 85018; 85027; 86850; 86900; 86901; 88304; 88305; 88311; 94150; C1776; J0690; J1100; J1170; J2250; J2370; J2405; J2710; J3010; J7120; J8501

== ENCOUNTER → 2017-02-23 | Outpatient (CLI) | payer MEDICARE, OTHER ==
[~2017-02-23] MED LIST changes: +ASPI325T PO; +COMMODE 3-IN-11 MIS; +DICL50TA PO; +DOCU100C PO; +LEVA500T PO; +MISC-163; +POTA550T2 PO; +ULTR50TA5 PO; +WALKER WHEELS/F1 MIS
[2017-02-23 10:39] LABS: AUTOMATED NEUTROPHIL # 3.7 TH/MM3 (1.8-7.7); BASOPHIL # 0.1 TH/MM3 (0-0.2); BASOPHIL % 0.7 % (0.0-2.0); EOSINOPHIL # 0.4 TH/MM3 (0-0.4); EOSINOPHIL % 4.8 % (0.0-4.0); HEMATOCRIT 43.1 % (39.0-51.0); HEMO FLAGS DIFF FINAL; LYMPH % 38.3 % (9.0-44.0); LYMPHOCYTE # 2.9 TH/MM3 (1.0-4.8); MEAN CELL VOLUME 89.5 FL (80.0-100.0); MEAN CORPUSCULAR HEMOGLOBIN 29.9 PG (27.0-34.0); MEAN CORPUSCULAR HGB CONC 33.4 % (32.0-36.0); MONO % 6.8 % (0.0-8.0); NEUT % 49.4 % (16.0-70.0); PLATELET COUNT 191 TH/MM3 (150-450); RED BLOOD COUNT 4.81 MIL/MM3 (4.50-5.90); RED CELL DISTRIBUTION WIDTH 15.4 % (11.6-17.2); WHITE BLOOD COUNT 7.5 TH/MM3 (4.0-11.0)
[2017-02-23 10:51] LABS: INTERNATIONAL NORMALIZED RATIO 0.9 RATIO; PROTHROMBIN TIME - PATIENT 10.4 SEC (9.8-11.6)
[2017-02-23 10:52] LABS: BLOOD, URINE NEG (NEG); COMMENT (UR) CULT NOT INDICATED; CULTURE IF INDICATED CULT NOT INDICATED; GLUCOSE,URINE NEG (NEG); HYALINE CAST, URINE 3 /lpf (RARE); KETONE, URINE TRACE mg/dL (NEG); MUCUS URINE MANY /lpf (OCC); NITRITE,URINE NEG (NEG); URINE COLOR DARK-YELLOW (YELLW/STRAW)
[2017-02-23 11:11] LABS: BICARBONATE 27.2 MEQ/L (21.0-32.0); POTASSIUM 3.6 MEQ/L (3.5-5.1)
== END ==
LOC: CPRE 10:04
PROVIDERS: ATTEND Orthopaedic Surgery
DX: Z01.812 Encounter for preprocedural laboratory examination (principal); M16.12 Unilateral primary osteoarthritis, left hip
CPT/HCPCS: 36415; 80048; 81001; 85025; 85610